=== PATIENT | male | born 2000 | race Caucasian/White ===

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

== ENCOUNTER 2021-12-29 01:15 | Emergency (ER) | payer SELFPAY ==
[~2021-12-29] VITALS: Ht 177.8 cm; Wt 93.2 kg
[2021-12-29] MEDS ORDERED: SODIUM CHLORIDE 0.9% 1,000 ML IV ONE (01:30)
[2021-12-29] MEDS ORDERED: LIDOCAINE 1%/EPI 1:200,000/PF 30 ML VIAL ONE (01:42)
[2021-12-29] MEDS ORDERED: BACITRACIN 0.9 GM PACKET OINTMENT TP ONE (01:45)
[2021-12-29] MEDS ORDERED: ACETAMINOPHEN 500 MG TABLET PO ONE (01:45)
[2021-12-29 04:00] VITALS: BP 127/74
== END 2021-12-29 04:27 | disposition short-term general hospital (02) ==
LOC: EMS 01:15
DX: S61.411A Laceration without foreign body of right hand, initial encounter (principal); W45.8XXA Other foreign body or object entering through skin, initial encounter; Y93.89 Activity, other specified; Y92.89 Other specified places as the place of occurrence of the external cause; Y99.8 Other external cause status
CPT/HCPCS: 99285; 96360; 36415; 73130; J3490